=== PATIENT | male | born 1975 | race Caucasian/White ===

== ENCOUNTER 2017-02-25 06:33 | Emergency (ER) | payer SELFPAY ==
[2017-02-25] MEDS ORDERED: Penicillin VK 500 MG TAB(NF) PO ONE (07:27)
[2017-02-25 07:49] VITALS: BP 145/86
[2017-02-25] MEDS ORDERED: Penicillin VK TAB* 250 MG PO ONE (08:00)
--- NOTE | 2017-02-25 18:19 | ED ---
Lanny Wagner Abhishek, scribed for Kenton Dozier MD on 02/25/17 at 0723 . Complex/Multi-Sys Presentation - HPI Summary HPI Summary: This patient is a 41 year old M presenting to [facility] [place] accompanied by_ with a chief complaint of dental pain since 02/23/17. CC is described as intermittent. The pain is located on the left lower jaw in the back. Dental pain in the paced and the tooth was removed. Pt has a Hx of corroded tooth. Other prior pertinent PMHx includes a small abscess in the area of current tooth pain, however, patient states it went away but then came back again. Pt reports no allergies. Both Tylenol (x4 at night) and Ibuprofen (5 to 6 times throughout yesterday) were ineffective at alleviating pain. The patient rates the pain 9/ 10 in severity. Symptoms aggravated by nothing. Symptoms alleviated by nothing. Patient denies fever. - History Of Current Complaint Chief Complaint: EDDentalPain Hx Obtained From: Patient Onset/Duration: Sudden Onset, Still Present Timing: Intermittent, Lasting: Severity Currently: Severe Severity Initially: Severe Location: Pain At: - Left lower jaw inside his mouth Aggravating Factor(s): nothing Alleviating Factor(s): nothing Associated Signs And Symptoms: Positive: Other - abcess in left lower jaw. Negative: Fever - Allergies/Home Medications Allergies/Adverse Reactions: Allergies Allergy/AdvReac Type Severity Reaction Status Date / Time No Known Allergies Allergy Verified 02/05/16 09:12 PMH/Surg Hx/FS Hx/Imm Hx Cardiovascular History: Reports: Hx Hypercholesterolemia - not treated Respiratory History: Reports: Other Respiratory Problems/Disorders - exertional sob for 2 months Sensory History: Reports: Hx Contacts or Glasses - READING GLASSES Denies: Hx Hearing Aid Opthamlomology History: Reports: Hx Contacts or Glasses - READING GLASSES - Surgical History Surgery Procedure, Year, and Place: 2010 LEFT THUMB DIGITAL NERVE REPAIR, FULL THICKNESS SKIN GRAFT FROM LEFT FOREARM[place] [facility] [place] Anesthesia Reactions: No Infectious Disease History: No Infectious Disease History: Denies: Traveled Outside the [place] in Last 30 Days - Family History Known Family History: Negative: Cardiac Disease, Hypertension, Diabetes - Social History Alcohol Use: Occasionally Hx Substance Use: Yes Substance Use Type: Reports: Marijuana Substance Use Comment - Amount & Last Used: DAILY Smoking Status (MU): Heavy Every Day Tobacco Smoker Type: Cigarettes Amount Used/How Often: 1 PPD FOR ABOUT 23 YEARS Review of Systems Negative: Fever Eyes: Negative Positive: Dental Pain - abcess inside the mouth (left lower jaw region) Cardiovascular: Negative Respiratory: Negative Gastrointestinal: Negative Genitourinary: Negative Musculoskeletal: Negative Skin: Negative Neurological: Negative Psychological: Normal All Other Systems Reviewed And Are Negative: Yes Physical Exam - Summary Physical Exam Summary: General: well-appearing, Mild pain distress Skin: warm, color reflects adequate perfusion, dry Head: Swelling left lower jaw, Left lower bolar has a large cavity in it, Gingival swelling Eyes: EOMI, MORENA ENT: normal Neck: supple, nontender Respiratory: CTA, breath sounds present Cardiovascular: RRR Abdomen: soft, nontender Bowel: present Musculoskeletal: normal, strength/ROM intact Neurological: normal, sensory/motor intact, A&O x3 Psychological: affect/mood appropriate Triage Information Reviewed: Yes Vital Signs On Initial Exam: Initial Vitals Temp Pulse Resp BP Pulse Ox 97.6 F 73 16 136/104 99 02/25/17 06:36 02/25/17 06:36 02/25/17 06:36 02/25/17 06:36 02/25/17 06:36 Vital Signs Reviewed: Yes Diagnostics - Vital Signs Vital Signs Temp Pulse Resp BP Pulse Ox 02/25/17 06:36 97.6 F 73 16 136/104 99 - Laboratory Lab Statement: Any lab studies that have been ordered have been reviewed, and results considered in the medical decision making process. Complex Multi-Symp Course/Dx Course Of Treatment: F/U DENTIST; RETURN IF WORSE. - Diagnoses Provider Diagnoses: Dental abscess Discharge - Discharge Plan Condition: Stable Disposition: HOME Prescriptions: HYDROcodone/ACETAMIN 5-325 MG* [Bath 5-325 TAB*] 1 tab PO Q4H PRN #20 tab MDD 6 PRN Reason: Pain Penicillin VK 500 MG TAB(NF) [Penicillin VK 500 mg Tab] 500 mg PO QID #39 tab Patient Education Materials: Dental Abscess (ED) Referrals: Rhea Sweet MD [Primary Care Provider] - Additional Instructions: FOLLOW UP WITH YOUR DENTIST. RETURN TO THE EMERGENCY DEPARTMENT FOR ANY WORSENING OF YOUR CONDITION OR QUESTIONS OR CONCERNS. The documentation as recorded by the Lanny lemus Abhishek accurately reflects the service I personally performed and the decisions made by me, Kenton Dozier MD.
== END 2017-02-25 07:47 | disposition home or self-care (01) ==
LOC: ED 06:33
DX: K04.7 Periapical abscess without sinus (principal)
CPT/HCPCS: 99282; A9270-GY